=== PATIENT | male | born 1960 | race Caucasian/White ===

== ENCOUNTER → 2017-06-23 | Outpatient (CLI) | payer BC ==
[~2017-06-23] MED LIST: ADVIL PM CAPLE1 EACH PO; ALEVE220 MG PO; B COMPLEX1 EACH PO; DOXYCYCLINE 10100 MG PO; FISH OIL 1,001000 M2 PO; NORCO 5-325 TA1 EACH PO; [UNRECOGNIZED DRUG - OTHER] PO
== END ==
LOC: RAD 09:13
DX: R04.2 Hemoptysis (principal)

== ENCOUNTER 2017-10-27 03:06 | Emergency (ER) | payer BC ==
[~2017-10-27] VITALS: Ht 190.5 cm; Wt 97.5 kg
[2017-10-27 03:12] VITALS: BP 141/85
[2017-10-27] MEDS ORDERED: DOXYCYCLINE 10100 MG PO (03:29)
== END 2017-10-27 03:43 | disposition home or self-care (01) ==
LOC: ER 03:06
DX: R21 Rash and other nonspecific skin eruption (principal)

== ENCOUNTER 2018-02-13 05:26 | Day surgery (SDC) | payer BC ==
[~2018-02-13] VITALS: Ht 190.5 cm; Wt 106.6 kg
--- NOTE | ~2018-02-13 | PATH ---
[facility] [address] [place] [address] PATHOLOGY RPT PROCEDURE Name: ARCHIE HOWARD Room #: DEP [facility] M.R.#: [id number] Admission: 02/13/18 Date of : 58 Discharge: 02/13/18 Report #: [id number] Path Case #: [id number] [facility] Accession Number: [id number] . 01 Material submitted: . PART A: LEFT HYDROCELE SAC PART B: LIPOMA FROM RIGHT UPPER ARM . 01 Clinical history: . Hernia right, hydrocele left, mass right upper arm Left inguinal hernia . 02 Diagnosis: A. Left hydrocele sac, hydrocelectomy: - Fragment of epididymis identified with no diagnostic abnormalities. - Fibrovascular connective tissue with congestion, compatible with hydrocele sac. . B. Mature adipose tissue, lipoma from right upper arm, excision: - Compatible with a lipoma. (IUV/db; 02/14/18) LBQ/02/14/2018 . 02 Electronically signed: . Yvonne Majano MD, Pathologist NPI- [id number] . 01 Gross description: . A. The specimen is received in formalin, labeled "Archie Howard, left hydrocele sac" and consists of a segment of rubbery pink-eldridge tissue measuring 8.0 x 1.5 x 0.4 cm. The specimen displays no gross lesions and u.s. representative sections are submitted in A1. . B. The specimen is received in formalin, labeled "Archie Howard, lipoma from right upper arm" and consists of an encapsulated segment of yellow adipose tissue measuring 2.4 x 1.8 x 1.0 cm. It is inked black and sectioned to reveal homogeneous yellow cut surfaces with no areas of hemorrhage, necrosis, or calcification. Electrophysiology Technologist sections are submitted in B1. (SDY; 02/13/2018) SYU/SYU . 02 Pathologist provided ICD-10: N43.3, D17.79 . 02 CPT . 071947, [id number] [address] [address] PATHOLOGY RPT PROCEDURE Name: ARCHIE HOWARD Room #: DEP [facility] M.R.#: [id number] Admission: 02/13/18 Date of : 58 Discharge: 02/13/18 Report #: [id number] Path Case #: [id number] Specimen Comment: A courtesy copy of this report has been sent to Specimen Comment: [phone], . Specimen Comment: Report sent to and Performed at: [address], [place], [place] [id number] MD Master Cruz MD Phone: [phone] Performed at: 02 [facility] [address] [facility], [place], [place] [id number] MD Yvonne Majano MD Phone: [phone]
--- NOTE | ~2018-02-13 | O ---
[facility] [place] [address] OPERATIVE REPORT Name: HALARCHIE SOLORZANO Room #: DEP [facility].#: [id number] Admission: 02/13/18 Attend Phys: Moiz Turner MD Discharge: 02/13/18 Date of : 58 Report #: [id number] THIS REPORT FOR: //name// CC: Latrell Burger DATE OF SERVICE: 02/13/2018 PREOPERATIVE DIAGNOSES: Recurrent right inguinal hernia, left hydrocele, right arm mass/lipoma. POSTOPERATIVE DIAGNOSES: 1. Right recurrent direct inguinal hernia. 2. Left indirect hernia. 3. Left hydrocele. 4. Right arm mass/lipoma. PROCEDURES PERFORMED: 1. Laparoscopic repair of bilateral inguinal hernia with mesh. 2. Left hydrocelectomy. 3. Excision of right upper arm mass. ANESTHESIA: General. COMPLICATIONS: None. ESTIMATED BLOOD LOSS: 15 mL. DESCRIPTION OF PROCEDURE: With the patient under general anesthesia, the abdomen and scrotum was prepped and draped in sterile fashion. Miller catheter was placed. Preoperative IV antibiotic was given. The scrotal area was covered. The 0.25% Marcaine was used to anesthetize the skin adjacent to the umbilicus. After incising through the skin and subcutaneous tissue, the fascia was identified. The right anterior rectus sheath was incised. The muscle was spread. Posterior sheath was then identified. The space between the muscle and the posterior sheath was dissected bluntly. A balloon trocar was then placed through the space. Under visualization, a 5 mm trocar was placed in the properitoneal space. Dissection was then carried out with cautery and blunt dissection. The properitoneal space was opened up. The right inferior epigastric vessel was identified. There was a fat that was protruding up into the abdominal wall medial to the epigastric vessel consistent with a direct defect. Lateral wall on the right side was opened up. A second 5 mm trocar was placed. The patient did have a left hydrocele and rule out inguinal hernia/communicating hydrocele. The left side was dissected free. No direct defect was found. The internal ring, which is lateral to the left inferior [address] [address] OPERATIVE REPORT Name: ARCHIE HUMPHRIES Room #: DEP [facility]..#: [id number] Admission: 02/13/18 Attend Phys: Moiz Turner MD Discharge: 02/13/18 Date of : 58 Report #: [id number] epigastric vessel, was identified. There is a small indirect hernia sac found. There is a cord lipoma also found over the cord. Both of these were freed and reduced from the cord and brought back in the properitoneal space. Attention was then placed to the right side. The patient had a direct defect. There was a fat that was pushed into the defect and this was brought down away from the fascia defect easily. On the area about the internal ring, there is scar tissue and thickening. I felt that I did not need to dissect this area fearing harm to the cord structure. This scar change is from his prior surgery. There could even be a mesh located in this area. I did not find any defect on the internal ring area. A large left-sided 3DMax lightweight mesh was placed. This was placed on the left side, opened up well. This was tacked laterally to the wall and then inferiorly to the pubic tubercle and medial to the rectus muscle. This covered the internal ring well. A right-sided mesh was then used. This covered the direct defect and also the internal ring. This mesh on the right side was tacked to the lateral wall, inferiorly to the inferior Judd ligament and then superomedially to the rectus muscle. There is a slight overlap of the mesh. No bleeding was identified. The CO2 was evacuated. Trocars removed. The fascia defect adjacent to the umbilicus closed with [id number] 0 Vicryl x 1, a single interrupted 0 Vicryl. Skin was irrigated, closed with 5-0 PDS. Steri-Strip, Band-Aids applied. The abdomen was then covered with a towel. The scrotum was then exposed by cutting the drape that was over it out. The left-sided scrotum was isolated. Local anesthetic was placed in the skin, incision about 3 cm was carried down to the hydrocele. The hydrocele was isolated, opened and then liquid was drained out of it. The hydrocele was then freed from surrounding tissue. Majority of the hydrocele sac was excised. The hydrocele was then everted and placed around the testicle. This was sewn together with 3-0 chromic suture. The subcutaneous tissue of the scrotum was closed with 3-0 chromic in running fashion. The skin was then closed with 3-0 chromic in a running fashion also. Dermabond was placed over this. I then changed my gloves. The right arm was isolated. This was cleaned with ChloraPrep, toweled and draped in sterile fashion. Incision was carried through the subcutaneous tissue and a well-formed lipoma was found. The lipoma was isolated and easily dissected free. Cautery was used for hemostasis. The skin was then closed with 5-0 PDS running subcuticular fashion. Steri-Strips applied, 4 x 4, OpSite used for dressing. The patient tolerated the procedure. <ELECTRONICALLY SIGNED> By: Moiz Turner MD 02/19/18 [id number] Moiz Turner MD /nt
[~2018-02-13 05:26] MED LIST changes: -NORCO 5-325 TA1 EACH PO
[2018-02-13 08:02] VITALS: BP 141/80
[2018-02-13] MEDS ORDERED: NORCO 5-325 TA1 EACH PO (11:33)
[2018-02-13 11:51] VITALS: BP 141/80
== END 2018-02-13 13:15 | disposition home or self-care (01) ==
LOC: TBA 05:26 → OR 05:26
DX: K40.91 Unilateral inguinal hernia, without obstruction or gangrene, recurrent (principal); K40.90 Unilateral inguinal hernia, without obstruction or gangrene, not specified as recurrent; N43.3 Hydrocele, unspecified; D17.21 Benign lipomatous neoplasm of skin and subcutaneous tissue of right arm; D17.6 Benign lipomatous neoplasm of spermatic cord; Z98.890 Other specified postprocedural states; Z79.899 Other long term (current) drug therapy; Z87.442 Personal history of urinary calculi; Z79.891 Long term (current) use of opiate analgesic; Z90.89 Acquired absence of other organs
CPT/HCPCS: 50010; 50101; 50386; 50403; 50411; 50507; 50555; 50848; 53065; 53307; 54118; 56462; 56524; 56525; 56526; 56719; 62110; 62900; 70005

== ENCOUNTER 2018-12-29 22:25 | Emergency (ER) | payer BC ==
[~2018-12-29] VITALS: Ht 190.5 cm; Wt 104.3 kg
[~2018-12-29 22:25] MED LIST changes: +NORCO 5-325 TA1 EACH PO
[2018-12-29] MEDS ORDERED: UNICOMPLEX M TA1 TA1 PO (22:30)
[2018-12-30 00:31] VITALS: BP 134/73
== END 2018-12-30 00:32 | disposition home or self-care (01) ==
LOC: ER 22:25
DX: S71.111A Laceration without foreign body, right thigh, initial encounter (principal); Z90.89 Acquired absence of other organs; W25.XXXA Contact with sharp glass, initial encounter; Y93.89 Activity, other specified; Y92.89 Other specified places as the place of occurrence of the external cause; Y99.8 Other external cause status